=== PATIENT | female | born 1990 | race Caucasian/White ===

== ENCOUNTER 2025-02-19 09:33 | Emergency (ER) | payer OTHER, SELFPAY ==
[2025-02-19 09:35] VITALS: BP 119/86
--- NOTE | 2025-02-19 10:27 | ED.GENMED ---
History of Present Illness
General
Chief Complaint: Back Pain
Source: patient
Time Seen by Provider: 02/19/25 09:55
History of Present Illness
History of Present Illness:
34-year-old female with no significant past medical history presents to the department for evaluation of ongoing left hip, lower back pain that radiates down her left leg, symptoms have been waxing and waning for the better part of a year but over
the last few days pain has gotten significantly worse. Patient has had outpatient workup done in the form of x-ray imaging, physical therapy and anti-inflammatories but patient has not had any relief. She states there were no new injuries or
reasoning behind the worsening pain. Patient ultimately was hoping to have more advanced imaging done to try and figure out what exactly is the cause of the pain. She denies any fevers, chills or rigors, focal weakness or numbness, saddle
anesthesia, bowel or urinary incontinence, history of IV drug abuse, traumatic injuries or any other red flag symptoms. Patient did not take anything for her symptoms today. No other concerns presently.
Past History
Past History
ED Past Medical History: None
ED Past Surgical History: Orthopedic and Tonsilectomy
Social History
Tobacco: Non-smoker
Alcohol: Occasional
Drug: None
Personal:
Living: with family
Review of Systems
Review of Systems
All Other Systems: ROS reviewed and negative except as documented in HPI and ROS
Phy Exam
Physical Exam
Physical Exam:
GENERAL: Alert , in no apparent distress
EYE: clear conjunctiva b/l
NECK: Supple
ENT: o/p clr, mmm.
BACK: limited range of motion, no focal tenderness, no midline bony tenderness, no rashes
NEUROLOGICAL: Alert and oriented, no focal neuro deficits. Patellar deep tendon reflexes intact and equal bilaterally, sensation grossly intact and equal to light touch bilateral lower extremities
SKIN: Warm and dry, skin intact.
MUSCULOSKELETAL: No edema, well perfused. EHL intact bilaterally
PSYCH: Normal and appropriate interaction.
Scores
Heart Failure Risk
Heart Failure Risk Score: Not Applicable
Heart Score for Chest Pain Patients
STEMI patient?: Not applicable
Withdrawal Assessment of Alcohol
Withdrawal Assessment Completed?: Not applicable
Course
Vital Signs
Initial and Last Documented VS:
Initial Vital Signs
Temp Pulse Resp BP Pulse Ox
97.8 F 85 16 119/86 100
02/19/25 09:35 02/19/25 09:35 02/19/25 09:35 02/19/25 09:35 02/19/25 09:35
Last Documented Vital Signs
Temp Pulse Resp BP Pulse Ox
97.8 F 85 16 119/86 100
02/19/25 09:35 02/19/25 09:35 02/19/25 09:35 02/19/25 09:35 02/19/25 10:27
MDM/Problems Addressed
Differential Diagnosis Includes:
Lumbar radiculopathy
Spinal stenosis
Disc herniation/Nerve impingement
No current symptoms to suggest cauda equina/neurogenic claudication
No risk factors for infectious etiology
Tendonitis
Bursitis
MDM/Problems Addressed:
34-year-old female presenting to the ER for evaluation of what appears to be acute on chronic lower back/left hip pain. Patient has had imaging done within the last couple of weeks but no etiologies seen. Pain now worse. Patient came to the ER in
hopes for more advanced imaging. Explained to the patient why we would be unable to obtain the advanced imaging here but that I can give her a prescription for this and have these results forwarded to her primary care provider team. I did
prescribe the patient a steroid taper for symptomatic relief. She declined any further medications. Advised her on return precautions. I did also provide the patient with information for pain management outpatient follow-up.
*Pulse Oximetry
SaO2: 100
Oxygen Mode of Delivery: Room air
Patient hypoxic: no
*Critical Care Note
Total Time (30-74mins, 75-104mins- exclusive of procedures): Not Applicable
ED Attending Note
-
Portions of this chart may have been created with voice recognition software.� Occasional wrong word or��sound alike� substitutions may have occurred due to the inherent limitations of voice recognition software.
Discharge Plan
Departure
Patient Disposition: Home (Routine Discharge)
Date of Disposition: 02/19/25
Time of Disposition: 10:27
Patient with high blood pressure during this ER visit?: No
Discharge Problem:
Dorsalgia of lumbosacral region
Instructions: Radiculopathy (DC)
Prescriptions:
New
prednisone 10 mg Tablet
See Rx Instructions .ROUTE .COMPLEX Qty: 30 0RF
Rx Instructions:
Take By Mouth:
40 mg daily x3 days, 30 mg daily x3 days,
20 mg daily x3 days, 10 mg daily x3 days.
Referrals:
Scooter Friend, DO [Non-Admitting Privileges, Orthopedics]
Interventions
Interventions:
*General Assessment Last Done: 02/19/25 09:35
*Neglect/Abuse Screening Last Done: 02/19/25 09:35
*ED COVID-19 Vaccine History Last Done: 02/19/25 10:40
*ED Influenza Vaccine History Last Done: 02/19/25 10:40
[facility] Fall Risk Assessment Tool Last Done: 02/19/25 10:37
*Risk Screen - Suicide (C-SSRS) Last Done: 02/19/25 09:35
*Nursing Disposition Last Done: 02/19/25 10:40
ED-Musculoskeletal Assessment Last Done: 02/19/25 10:38
Discharge Date and Time
Discharge Date/Time: 02/19/25 10:40
Print Language: GREEK
== END 2025-02-19 10:40 | disposition home or self-care (01) ==
LOC: EMR 09:33
PROVIDERS: EMERGENCY PHYSICIAN Emergency Medicine; FAMILY PHYSICIAN Student in an Organized Health Care Education/Training Program
DX: M54.50 Low back pain, unspecified (principal); M25.552 Pain in left hip
CPT/HCPCS: 99282